=== PATIENT | female | born 1980 | race American Indian/Alaskan Native ===

== ENCOUNTER 2018-03-11 11:34 | Outpatient (CLI) | payer OTHER ==
[2018-03-11] MEDS ORDERED: CELESTONE SOLUSPAN IM SCH (12:00)
== END 2018-03-11 11:57 | disposition home or self-care (01) ==
LOC: TRG 11:34
PROVIDERS: ATTEND Obstetrics & Gynecology
DX: O47.02 False labor before 37 completed weeks of gestation, second trimester (principal); Z3A.24 24 weeks gestation of pregnancy
CPT/HCPCS: 96372; J0702

== ENCOUNTER 2018-03-12 12:20 | Outpatient (CLI) | payer OTHER ==
[2018-03-12] MEDS ORDERED: CELESTONE SOLUSPAN IM ONE (12:23)
== END 2018-03-12 12:39 | disposition home or self-care (01) ==
LOC: TRG 12:20
PROVIDERS: ATTEND Obstetrics & Gynecology
DX: O47.02 False labor before 37 completed weeks of gestation, second trimester (principal); Z3A.24 24 weeks gestation of pregnancy
CPT/HCPCS: 96372; J0702

== ENCOUNTER 2018-06-17 19:24 | Inpatient (IN) | payer OTHER ==
[2018-06-17] MEDS ORDERED: BICITRA PO ONE (19:33)
[2018-06-17] MEDS ORDERED: REGLAN IV ONE (19:33)
[2018-06-17] MEDS ORDERED: PEPCID IV ONE (19:33)
[2018-06-17] MEDS ORDERED: EMLA TP PRN (19:33)
--- NOTE | 2018-06-17 19:42 | History and Physical Report ---
History of Present Illness Date of examination: 06/17/18 Date of admission: 06/17/18 19:24 Chief complaint: sent from [facility] for repeat csec for BPP 4/10 History of present illness: This is a Danae Flores MD patient. I am cross covering this weekend. I received a call from Dr. flores alerting that she had [facility] appt and she was called to alert that the patient had a BPP 4/10 and was sent to hospital for direct admit for repeat csec. I was contacted at [facility]. I spoke to charge nurse An to alert and the L & D staff had no mention of this patient coming. Several call to L&D and Dr. Flores to attempt to inquire where the patient was. The patient comes to hospital several hours later " i went home to [place] to get my child and and there was a lot of traffic on [address]" There is a delay in care secondary to patient not proceeding directly to hospital. I reviewed M notes stating the patient lost points for tone, reactivity and body movements. [facility] recommended delivery via repeat . Patient records were reviewed. She is a chronic HTN on Aldomet 250 mg BID. She is also on asa for prevention of preeclampsia . Past History Past Medical History: hypertension Past Surgical History: section, myomectomy Family/Genetic History: hypertension (mother and father) Social history: single. denies: smoking, alcohol abuse, prescription drug abuse , IV drug use - Obstetrical History Expected Date of Delivery: 07/01/18 Actual Gestation: 38 Week(s) 0 Day(s) : 7 Para: 1 Hx # Term Pregnancies: 0 Number of Pregnancies: 1 Spontaneous Abortions: 2 Induced : 3 Number of Living Children: 1 Medications and Allergies Allergies Allergy/AdvReac Type Severity Reaction Status Date / Time No Known Allergies Allergy Verified 03/12/18 12:23 Active Meds: Active Medications Citric Acid/Sodium Citrate (Bicitra) 30 ml PO ONCE ONE Stop: 06/17/18 19:34 Famotidine (Pepcid) 20 mg IV ONCE ONE Stop: 06/17/18 19:34 Cefazolin Sodium (Ancef/Sterile Water 2 Gm/20 Ml) 2 gm in 20 mls @ 80 mls/hr IV PREOP NR; Protocol Lactated Ringer's (Lactated Ringers) 1,000 mls @ 2,250 mls/hr IV PREOP RAHEEM Stop: 06/18/18 20:27 Oxytocin/Sodium Chloride (Pitocin/Ns 20 Unit/1000ml Drip) 20 units in 1,000 mls @ 0 mls/hr IV TITR RAHEEM Lidocaine/Prilocaine (Emla) 1 applic TP ONCE PRN PRN Reason: for victor catheter insertion Metoclopramide HCl (Reglan) 10 mg IV ONCE ONE Stop: 06/17/18 19:34 Review of Systems All systems: negative - Vital Signs Vital signs: Vital Signs Pulse Pulse Ox 110 H 100 06/17/18 19:29 06/17/18 19:29 Temp Pulse Resp BP Pulse Ox 114 H 99 06/17/18 19:34 06/17/18 19:34 - Physical Exam Breasts: Positive: deferred Cardiovascular: Regular rate, Normal S1 Lungs: Positive: Clear to auscultation, Normal air movement Abdomen: Positive: normal appearance, soft, normal bowel sounds. Negative: distention, tenderness, guarding Genitourinary (Female): Positive: normal external genitalia, normal perenium Vulva: both: normal Uterus: Positive: normal size, normal contour Anus/Rectum: Positive: normal perianal skin Extremities: Positive: normal Deep Tendon Reflex Grade: Normal +2 - Obstetrical FHR: category 1 Results All other labs normal. Assessment and Plan A/P IUP 38+1 weeks term hx of previous csec chronic HTN BPP 4/[address] on monitor immediately stat labs preparation for repeat csec and BTL r/b/a of procedure reviewed which include bleeding infection, damage to pelvic and non pelvic organs risk of chronic pain, blood transfusion, hysterectomy and patient signed consents
[2018-06-17] MEDS ORDERED: ANCEF/STERILE WATER 2 GM/20 ML 2 GM/20 ML SYRINGE IV NR (20:00)
[2018-06-17] MEDS ORDERED: LACTATED RINGERS 1,000 ML IV SCH (20:00)
[2018-06-17] MEDS ORDERED: PITOCin/NS 20 UNIT/1000ML DRIP 20 UNITS/1,000 ML BAG IV SCH ×2 (20:00→23:00)
[2018-06-17 20:24] LABS: Basophils % (Auto) 0.5 % (0.0-1.8); Eosinophils # (Auto) 0.1 K/mm3 (0.0-0.4); Hematocrit 38.6 % (30.3-42.9); Hemoglobin 12.7 gm/dl (10.1-14.3); Lymphocytes # (Auto) 1.4 K/mm3 (1.2-5.4); Lymphocytes % (Auto) 21.6 % (13.4-35.0); Mean Corpuscular HGB Conc 33 % (30-34); Mean Corpuscular Hemoglobin 31 pg (28-32); Mean Corpuscular Volume 93 fl (79-97); Monocytes # (Auto) 0.6 K/mm3 (0.0-0.8); Monocytes % (Auto) 9.6 % (0.0-7.3); Platelet Count 326 K/mm3 (140-440); Red Blood Count 4.14 M/mm3 (3.65-5.03); Red Cell Distribution Width 15.8 % (13.2-15.2)
--- NOTE | 2018-06-17 20:33 | Anesthesia Consultation ---
Anesthesia Consult and Med Hx Date of service: 06/17/18 - Airway Anesthetic Teeth Evaluation: Good ROM Head & Neck: Adequate Mental/Hyoid Distance: Adequate Mallampati Class: Class II Intubation Access Assessment: Probably Good - Pulmonary Exam CTA: Yes - Cardiac Exam Cardiac Exam: RRR - Pre-Operative Health Status ASA Pre-Surgery Classification: ASA2 Proposed Anesthetic Plan: Spinal - Pulmonary Hx Asthma: No COPD: No Hx Pneumonia: No - Cardiovascular System Hx Hypertension: Yes - Central Nervous System Hx Seizures: No Hx Psychiatric Problems: Yes (Hx of major depression, and anxiety) - Endocrine Hx Renal Disease: No Hx End Stage Renal Disease: No Hx Hypothyroidism: No Hx Hyperthyroidism: No - Hematic Hx Anemia: No Hx Sickle Cell Disease: No - Other Systems Hx Alcohol Use: Yes (occasional)
--- NOTE | 2018-06-17 20:33 | Anesthesia Day of Surgery ---
Anesthesia Day of Surgery - Day of Surgery Patient Examined: Yes Patient H&P Reviewed: Yes Patient is NPO: Yes
[2018-06-17] MEDS ORDERED: ANCEF/STERILE WATER 2 GM/20 ML IV ONE (20:41)
[2018-06-17] MEDS ORDERED: MORPHINE ONE (20:44)
[2018-06-17] MEDS ORDERED: NACL 0.9% IR ONE (20:50)
[2018-06-17] MEDS ORDERED: WATER FOR IRRIG STERILE IR ONE (20:50)
[2018-06-17] MEDS ORDERED: NEO SYNEPHRINE/NS Syringe(OR USE) IV ONE (21:16)
[2018-06-17] MEDS ORDERED: VERSED ONE (22:02)
[2018-06-17] MEDS ORDERED: TORADOL ONE (22:06)
--- NOTE | 2018-06-17 22:25 | Procedure Note ---
OB Delivery Note - Delivery Date of Delivery: 06/17/18 Surgeon: AN WATSON Estimated blood loss: 300cc - Section Preop diagnosis: repeat Postop diagnosis: same section procedure: section, bilateral tubal ligation Disposition: PACU Complications: none - A at 1 minute: 8 at 5 minutes: 9 Gender: Female (EFW 6 pounds 3 oz)
[2018-06-17] MEDS ORDERED: TORADOL IV PRN (22:28)
[2018-06-17] MEDS ORDERED: PERCOCET 5/325 PO PRN (22:28)
--- NOTE | 2018-06-17 22:30 | Post Anesthesia Evaluation ---
- Post Anesthesia Evaluation Patient Participated: Yes Airway Patent: Yes Stable Respiratory Function: Yes Nausea/Vomiting: No Temp > 96.8F: Yes Pain Manageable: Yes Adequeate Hydration: Yes Anesthesia Complications: No Block Receding Appropriately: Yes Patient on Ventilator: No
--- NOTE | 2018-06-17 22:37 | Operative Report ---
Operative Report Operative Report: DATE OF OPERATION: 06/17/18 PREOPERATIVE DIAGNOSES: 1. Prior sectionx1 2. Previous myomectomy . 3 Chronic HTN on meds 4. BPP /10 Non reassuring 5. Desires infertility . POSTOPERATIVE DIAGNOSES: 1.-5 EMILY 6. Severe scar tissue . OPERATION PERFORMED: Repeat low transverse ., BTL., lysis of adhesion SURGEON: Judi Cox MD ANESTHESIA: Spinal. ESTIMATED BLOOD LOSS: 300 mL. FINDINGS: A viable female weighing 6 pounds 3oz Apgars 8/9 COMPLICATIONS: None. DISPOSITION: Stable. DESCRIPTION OF OPERATION: After informed consent was obtained, the patient was brought back to the operative suite where adequate spinal anesthesia was obtained. The patient was then placed in the dorsal supine position and prepped and draped in the sterile fashion. A repeat Pfannenstiel skin incision was made with a blade and carried down through the subcutaneous tissues to the fascia, which was extended in the transverse fascia with Burks scissors. The fascial incision was then dissected off the rectus muscles both bluntly and sharply. The rectus muscle was in the midline. The peritoneum was entered bluntly. The peritoneal incision was then extended both superiorly and inferiorly with good visualization of the underlying bowel and bladder. The bladder blade was placed, and the vesicouterine fascia was incised to create a bladder flap in a low transverse position. This was developed digitally. A low transverse uterine incision was made with the blade and carried down through the layers of the uterus until membranes bulged through the incision. The uterine incision was then extended digitally. Hand was placed inside the pelvis, and the head was brought up out of the pelvis and delivered atraumatically with gentle fundal pressure. Prior to the head being delivered, actually through the skin, the sound of the baby starting to cry was noted. After the head was delivered, the mouth and nares were aggressively bulb suctioned. Remainder of the was delivered, and the infant was passed to the awaiting nursing staff for additional care. Cord was doubly clamped and cut and cord blood was obtained. The placenta was then manually extracted, and the uterus was exteriorized. The uterus was cleaned of remaining clot. The uterine incision was readily identified and closed in two layers, first one with running locking followed by second imbricating layer of 0 Vicryl. The vesicouterine fascia was then reapproximated with 2-0 Vicryl. The adnexa bilaterally were severely attached to the lateral and posterior portion of the cervix. The left fallopian tube was identified. It was followed to fimbrated end and filshie clip applied in midportion. . The right fallopian tube was identified, carefully traced out from its fimbriated end, fimbriated end had been positively identified. The fallopian tube was carefully re-traced at its mid portion and 3 filshie clips applied as the tube was running along the lateral and posterior of the uterus. T The uterus was placed back inside the pelvis. Copious irrigation and inspection of the incision was satisfactory. The peritoneum was then closed with 2-0 Vicryl in a running fashion. The fascia was closed with 0 PDSl from one angle to the next. Subcutaneous tissues were copiously irrigated, and final bleeders were cauterized. The incision was then reapproximated with 4-0 Leonel needle.
[2018-06-17] MEDS ORDERED: MOTRIN PO PRN (22:41)
[2018-06-17] MEDS ORDERED: LANSINOH TP PRN (22:41)
[2018-06-17] MEDS ORDERED: MORPHINE IV PRN (22:41)
[2018-06-17] MEDS ORDERED: TYLENOL PR PRN (22:41)
[2018-06-17] MEDS ORDERED: TUCKS PAD TP PRN (22:41)
[2018-06-17] MEDS ORDERED: ZOFRAN IV PRN (22:41)
[2018-06-17] MEDS ORDERED: MYLICON PO PRN (22:41)
[2018-06-17] MEDS ORDERED: PHENERGAN PR PRN (22:41)
[2018-06-17] MEDS ORDERED: MILK OF MAGNESIA PO PRN (22:41)
[2018-06-17] MEDS ORDERED: NARCAN 0.4 MG/1 ML IV PRN (22:41)
[2018-06-17] MEDS: DILAUDID IV PRN ×2 (22:42→22:47)
[2018-06-17] MEDS ORDERED: SODIUM CHLORIDE FLUSH SYRINGE 10 ML IV NR ×2 (23:00)
[2018-06-17] MEDS ORDERED: D5LR 1,000 ML IV SCH (23:00)
[2018-06-18] MEDS ORDERED: BENADRYL IV PRN (02:20)
[2018-06-18] MEDS: BENADRYL IV PRN (02:45)
[2018-06-18] MEDS ORDERED: BOOSTRIX IM ONE (06:00)
[2018-06-18] MEDS ORDERED: M-M-R II VACCINE SUB-Q ONE (06:00)
[2018-06-18] MEDS: ATIVAN PO PRN ×2 (06:23→23:26)
--- NOTE | 2018-06-18 07:04 | Progress Note ---
Assessment and Plan A/P POD#1 s/p repeat csec and BTL chronic HTN Anxiety routine PO orders ativan 1mg bid for anxiety breast feeding doing well routine postop orders Subjective - Subjective Date of service: 06/18/18 Principal diagnosis: s/p repeat cesec and btl for BPP 4/10 Interval history: This is a Danae Flores MD patient. I am cross covering this weekend. I received a call from Dr. flores alerting that she had [facility] appt and she was called to alert that the patient had a BPP 4/10 and was sent to hospital for direct admit for repeat csec. I was contacted at [facility]. I spoke to charge nurse An to alert and the L & D staff had no mention of this patient coming. Several call to L&D and Dr. Flores to attempt to inquire where the patient was. The patient comes to hospital several hours later " i went home to [place] to get my child and and there was a lot of traffic on [address]" There is a delay in care secondary to patient not proceeding directly to hospital. I reviewed MFM notes stating the patient lost points for tone, reactivity and body movements. [facility] recommended delivery via repeat . Patient records were reviewed. She is a chronic HTN on Aldomet 250 mg BID. She is also on asa for prevention of preeclampsia . Patient reports: appetite normal, voiding normally, pain well controlled, flatus , ambulating normally : doing well Objective - Vital Signs Latest vital signs: Vital Signs Temp Pulse Resp BP BP Pulse Ox 06/18/18 05:15 98.2 F 116 H 20 143/100 100 06/18/18 00:05 98.0 F 106 H 20 123/87 100 06/17/18 23:20 108 H 20 112/73 100 06/17/18 23:05 108 H 28 H 98/64 100 06/17/18 22:50 107 H 23 96/63 97 06/17/18 22:35 107 H 28 H 98/59 97 06/17/18 22:30 104 H 22 103/63 99 06/17/18 22:25 105 H 20 109/72 97 06/17/18 22:22 97.6 F 112 H 16 82/41 96 06/17/18 20:20 97.6 F 06/17/18 19:59 107 H 98 06/17/18 19:54 108 H 99 09/21/18 19:49 104 H 99 06/17/18 19:44 106 H 131/87 99 06/17/18 19:39 104 H 98 06/17/18 19:34 114 H 99 06/17/18 19:32 97.6 F 110 H 20 100 06/17/18 19:29 110 H 100 Intake and Output 06/17/18 06/17/18 06/18/18 15:59 23:59 07:59 Intake Total 3600 120 Output Total 140 75 Balance 3460 45 Intake: IV 3600 Oral 120 Output: Urine 140 75 Indwelling Catheter 75 Other: Total, Intake Amount 120 Total, Output Amount 75 Weight 87.543 kg Estimated Blood Loss 300 - Exam Breasts: Present: normal Cardiovascular: Present: Regular rate, Normal S1 Lungs: Present: Clear to auscultation, Normal air movement Abdomen: Present: normal appearance, soft, normal bowel sounds. Absent: distention, tenderness, guarding Vulva: both: normal Uterus: Present: normal, firm, fundal height below umbilicus. Absent: bogginess , tenderness Extremities: Present: normal Deep Tendon Reflex Grade: Normal +2 Incision: Present: normal, dry, intact - Labs Labs: Abnormal lab results 06/17/18 Range/Units 20:09 RDW 15.8 H (13.2-15.2) % [place] % (Auto) 9.6 H (0.0-7.3) %
[2018-06-18] MEDS ORDERED: D5LR 1,000 ML IV SCH (08:00)
[2018-06-18] MEDS: NUBAIN IV PRN ×2 (09:36→14:27)
[2018-06-18] MEDS: ALDOMET PO SCH ×2 (09:43→22:22)
[2018-06-18] MEDS: FEOSOL PO SCH (09:43)
[2018-06-18] MEDS: PRENATAL VITAMIN PO SCH (09:43)
[2018-06-18 12:13] LABS: Hemoglobin 11.9 gm/dl (10.1-14.3)
[2018-06-18] MEDS: DILAUDID IV PRN ×2 (17:02→23:27)
[2018-06-18] MEDS ORDERED: AMBIEN PO PRN (18:49)
[2018-06-19] MEDS: BENADRYL IV PRN (05:00)
[2018-06-19] MEDS: NORCO 5/325 PO PRN ×2 (05:00→10:00)
[2018-06-19] MEDS: DILAUDID IV PRN (05:22)
[2018-06-19] MEDS ORDERED: BOOSTRIX IM ONE (06:00)
[2018-06-19] MEDS ORDERED: CITRATE OF MAGNESIA PO ONE (07:39)
[2018-06-19 08:50] LABS: Hematocrit 40.9 % (30.3-42.9); Hemoglobin 12.8 gm/dl (10.1-14.3); Mean Corpuscular HGB Conc 31 % (30-34); Mean Corpuscular Hemoglobin 30 pg (28-32); Mean Corpuscular Volume 95 fl (79-97); Platelet Count 309 K/mm3 (140-440); Red Blood Count 4.31 M/mm3 (3.65-5.03); Red Cell Distribution Width 16.1 % (13.2-15.2)
[2018-06-19 09:09] LABS: Alanine Aminotransferase 10 units/L (7-56); Uric Acid 4.2 mg/dL (3.5-7.6)
[2018-06-19] MEDS ORDERED: NORMODYNE PO SCH (10:00)
[2018-06-19] MEDS: PRENATAL VITAMIN PO SCH (10:04)
[2018-06-19] MEDS: FEOSOL PO SCH (10:04)
[2018-06-19] MEDS ORDERED: BENADRYL PO ONE (10:22)
[2018-06-19 17:30] VITALS: BP 110/80
== END 2018-06-19 19:00 | disposition home or self-care (01) | DRG 766 ==
LOC: LD 19:24 → OB 06-18 00:53
PROVIDERS: ADMIT Obstetrics & Gynecology; ATTEND Obstetrics & Gynecology
PROC: 10D00Z1 Extraction of Products of Conception, Low, Open Approach (ICD-10-PCS; principal; 2018-06-17)
PROC: 0UL70CZ Occlusion of Bilateral Fallopian Tubes with Extraluminal Device, Open Approach (ICD-10-PCS; 2018-06-17)
PROC: 3E0234Z Introduction of Serum, Toxoid and Vaccine into Muscle, Percutaneous Approach (ICD-10-PCS; 2018-06-17)
DX: O34.211 Maternal care for low transverse scar from previous cesarean delivery (principal); O16.4 Unspecified maternal hypertension, complicating childbirth; O99.344 Other mental disorders complicating childbirth; O76 Abnormality in fetal heart rate and rhythm complicating labor and delivery; Z37.0 Single live birth; Z23 Encounter for immunization; Z3A.38 38 weeks gestation of pregnancy; F41.9 Anxiety disorder, unspecified
CPT/HCPCS: 36415; 82565; 83615; 84450; 84460; 84550; 85014; 85018; 85025; 85027; 86850; 86900; 86901; 88307; 90715; C9250; J0690; J1170; J1200; J1885; J2250; J2270; J2300; J2370; J2590; J2765; J7120; J7121